=== PATIENT | female | born 1960 | race African-American/Black ===

== ENCOUNTER 2022-11-16 14:06 | Inpatient (IN) | payer MEDICAID ==
[~2022-11-16] VITALS: Ht 167.6 cm; Wt 108.0 kg
[2022-11-16 16:25] LABS: BASOPHILS % 0.2 % (0.0-2.0); EOSINOPHILS % 0.5 % (0.0-5.0); HEMATOCRIT. 37.2 % (36.0-48.0); HEMOGLOBIN. 12.8 g/dL (12.0-16.0); LYMPHOCYTES % 14.2 % (20.0-50.0); MEAN CORPUSCULAR HEMOGLOBIN 32.4 pg (28.0-32.0); MEAN CORPUSCULAR VOLUME 94.5 fL (81.0-99.0); MEAN PLATELET VOLUME 9.3 fl (7.4-10.4); MONOCYTES % 5.5 % (2.0-8.0); NEUTROPHILS % 79.6 % (40.0-76.0); PLATELET 264 x1000/uL (130-400); RED BLOOD CELL COUNT 3.94 mill/uL (4.2-5.4); RED CELL DISTRIBUTION WIDTH 14.7 % (11.6-14.6)
[2022-11-16 16:36] LABS: CHLORIDE 92 mEq/L (98-107)
[2022-11-16 17:08] LABS: PHOSPHORUS 2.7 mg/dL (2.5-4.9)
[2022-11-16 17:09] LABS: CREATINE KINASE 7705 IU/L (26-192); T4 FREE 0.14 ng/dL (0.76-1.46)
[2022-11-16] MEDS ORDERED: LEVOTHYROXINE SODIUM 100MCG TABLET PO ONE (18:30)
[2022-11-16] MEDS ORDERED: ASPIRIN 325MG EC TABLET PO ONE (18:30)
[2022-11-16] MEDS ORDERED: POTASSIUM CHLORIDE 20MEQ TABLET SR PO ONE (18:30)
[2022-11-16] MEDS ORDERED: KCL 20MEQ/100ML PREMIX 100 ML IV ONE (18:30)
[2022-11-16] MEDS ORDERED: SODIUM CHLORIDE 0.9% 1,000 ML IV ONE (20:00)
[2022-11-16] MEDS: MAGNESIUM OXIDE 400MG TABLET PO SCH (20:52)
[2022-11-16] MEDS ORDERED: POTASSIUM CHLORIDE 20MEQ TABLET SR PO NR (21:00)
[2022-11-16 21:05] LABS: CLARITY URINE CLEAR (CLEAR); COLOR URINE YELLOW (YELLOW); KETONES URINE TRACE (NEGATIVE); LEUKOCYTE ESTERASE URINE NEGATIVE (NEGATIVE); NITRITE URINE NEGATIVE (NEGATIVE); OCCULT BLOOD URINE TRACE (NEGATIVE); PH URINE 7.5 (4.5-8.0); PROTEIN URINE NEGATIVE (NEGATIVE); SPECIFIC GRAVITY URINE 1.004 (1.005-1.030)
[2022-11-16] MEDS ORDERED: LORAZEPAM 0.5MG TABLET PO PRN (22:45)
[2022-11-16] MEDS ORDERED: ONDANSETRON HCL 4MG/2ML INJ IV PRN (22:45)
[2022-11-16] MEDS ORDERED: ACETAMINOPHEN 325MG TABLET PO PRN ×2 (22:45)
[2022-11-16] MEDS ORDERED: IPRATROPIUM/ALBUTEROL 0.5-3(2.5)MG/3ML NEB HHN PRN (22:45)
[2022-11-16] MEDS ORDERED: DEXTROSE 50% WATER 50ML SYRINGE IV PRN (22:45)
[2022-11-16] MEDS ORDERED: LISINOPRIL 10MG TABLET PO SCH (22:45)
[2022-11-16] MEDS ORDERED: DOCUSATE SODIUM 100MG CAPSULE PO PRN (22:45)
[2022-11-16] MEDS: CLONIDINE 0.1MG TABLET PO PRN (23:52)
[2022-11-17] MEDS: SODIUM CHLORIDE 0.9% 1,000 ML IV SCH ×2 (00:15→17:46)
[2022-11-17] MEDS ORDERED: ASPIRIN 81MG TABLET PO NR (00:15)
[2022-11-17 03:00] VITALS: BP 156/78
[2022-11-17 03:29] VITALS: BP 156/78
[2022-11-17] MEDS: BLOOD SUGAR DIAGNOSTIC STRIP TEST SCH ×4 (06:40→21:26)
[2022-11-17 07:09] LABS: BASOPHILS % 0.7 % (0.0-2.0); HEMATOCRIT. 29.8 % (36.0-48.0); HEMOGLOBIN. 10.3 g/dL (12.0-16.0); LYMPHOCYTES % 23.7 % (20.0-50.0); MEAN CORPUSCULAR HEMOGLOBIN 32.4 pg (28.0-32.0); MEAN CORPUSCULAR VOLUME 93.8 fL (81.0-99.0); MEAN PLATELET VOLUME 9.4 fl (7.4-10.4); MONOCYTES % 6.6 % (2.0-8.0); PLATELET 233 x1000/uL (130-400); RED BLOOD CELL COUNT 3.17 mill/uL (4.2-5.4); RED CELL DISTRIBUTION WIDTH 14.9 % (11.6-14.6)
[2022-11-17] MEDS: INSULIN LISPRO 100 UNITS/ML SUBCUT SCH ×4 (07:10→21:00)
[2022-11-17 07:14] LABS: CHLORIDE 97 mEq/L (98-107)
[2022-11-17 07:28] LABS: HDL CHOLESTEROL 57 mg/dL (40-59); LDL CHOLESTEROL 256 mg/dL (5-100)
[2022-11-17 08:00] VITALS: BP 156/91
[2022-11-17 08:01] LABS: CREATINE KINASE 6502 IU/L (26-192)
[2022-11-17] MEDS ORDERED: POTASSIUM CHLORIDE 20MEQ TABLET SR PO SCH (08:30)
[2022-11-17] MEDS: LEVOTHYROXINE SODIUM 100MCG TABLET PO SCH (08:48)
[2022-11-17] MEDS: SPIRONOLACTONE 25MG TABLET PO SCH (08:49)
[2022-11-17] MEDS: ASPIRIN 81MG TABLET PO SCH (08:49)
[2022-11-17] MEDS: MAGNESIUM OXIDE 400MG TABLET PO SCH (08:49)
[2022-11-17] MEDS: ENOXAPARIN 30MG/0.3ML SYR SUBCUT SCH ×2 (08:50→21:29)
[2022-11-17] MEDS ORDERED: POTASSIUM CHLORIDE INJ 40 MEQ in DEXT 5% WATER 250 ML IV SCH (10:00)
[2022-11-17 12:00] VITALS: BP 147/74
[2022-11-17 16:00] VITALS: BP 113/44
[2022-11-17] MEDS ORDERED: IPRATROPIUM BROMIDE (0.02%) 0.5MG/2.5ML NEB HHN PRN (16:30)
[2022-11-17] MEDS ORDERED: ALBUTEROL (0.083%) 2.5MG/3ML NEB HHN PRN (16:30)
[2022-11-17 20:00] VITALS: BP 123/62
[2022-11-17] MEDS: FAMOTIDINE 20MG TABLET PO SCH (21:28)
[2022-11-17 22:18] LABS: CHLORIDE 97 mEq/L (98-107)
[2022-11-18] VITALS: BP 121/69
[2022-11-18 06:31] LABS: CHLORIDE 104 mEq/L (98-107)
[2022-11-18] MEDS: INSULIN LISPRO 100 UNITS/ML SUBCUT SCH ×4 (06:45→20:40)
[2022-11-18] MEDS: BLOOD SUGAR DIAGNOSTIC STRIP TEST SCH ×4 (06:45→20:39)
[2022-11-18 06:52] LABS: BASOPHILS % 0.8 % (0.0-2.0); EOSINOPHILS % 2.1 % (0.0-5.0); HEMATOCRIT. 28.9 % (36.0-48.0); HEMOGLOBIN. 10.2 g/dL (12.0-16.0); LYMPHOCYTES % 29.4 % (20.0-50.0); MEAN CORPUSCULAR HEMOGLOBIN 33.2 pg (28.0-32.0); MEAN CORPUSCULAR VOLUME 94.1 fL (81.0-99.0); MEAN PLATELET VOLUME 9.7 fl (7.4-10.4); MONOCYTES % 5.7 % (2.0-8.0); PLATELET 223 x1000/uL (130-400); RED BLOOD CELL COUNT 3.07 mill/uL (4.2-5.4); RED CELL DISTRIBUTION WIDTH 14.9 % (11.6-14.6)
[2022-11-18 08:00] VITALS: BP 140/66
[2022-11-18] MEDS: LEVOTHYROXINE SODIUM 100MCG TABLET PO SCH (08:59)
[2022-11-18] MEDS: ASPIRIN 81MG TABLET PO SCH (09:00)
[2022-11-18] MEDS: ENOXAPARIN 30MG/0.3ML SYR SUBCUT SCH ×2 (09:00→20:39)
[2022-11-18] MEDS: SPIRONOLACTONE 25MG TABLET PO SCH (09:00)
[2022-11-18] MEDS: MAGNESIUM OXIDE 400MG TABLET PO SCH (09:00)
[2022-11-18] MEDS: SODIUM CHLORIDE 0.9% 1,000 ML IV SCH (09:01)
[2022-11-18] MEDS ORDERED: POTASSIUM CHLORIDE INJ 40 MEQ in DEXT 5% WATER 250 ML IV ONE (09:15)
[2022-11-18] MEDS: POTASSIUM CHLORIDE 20MEQ TABLET SR PO SCH (09:36)
[2022-11-18] MEDS: KCL 20MEQ/100ML X 2 FOR TOTAL KCL 40MEQ/200ML IV SCH ×2 (10:56→13:26)
[2022-11-18 12:00] VITALS: BP 129/75
[2022-11-18 16:00] VITALS: BP 150/82
[2022-11-18 20:00] VITALS: BP 136/73
[2022-11-18] MEDS: FAMOTIDINE 20MG TABLET PO SCH (20:39)
[2022-11-19] VITALS: BP 138/76
[2022-11-19] MEDS: SODIUM CHLORIDE 0.9% 1,000 ML IV SCH ×2 (00:10→18:35)
[2022-11-19 04:00] VITALS: BP 140/73
[2022-11-19] MEDS: BLOOD SUGAR DIAGNOSTIC STRIP TEST SCH ×4 (05:57→20:50)
[2022-11-19] MEDS: INSULIN LISPRO 100 UNITS/ML SUBCUT SCH ×4 (05:57→20:50)
[2022-11-19 08:00] VITALS: BP_SYST 156; BP_SYST 159; BP_DIAS 84
[2022-11-19] MEDS: SPIRONOLACTONE 25MG TABLET PO SCH (09:02)
[2022-11-19] MEDS: LEVOTHYROXINE SODIUM 100MCG TABLET PO SCH (09:02)
[2022-11-19] MEDS: POTASSIUM CHLORIDE 20MEQ TABLET SR PO SCH (09:02)
[2022-11-19] MEDS: ASPIRIN 81MG TABLET PO SCH (09:02)
[2022-11-19] MEDS: ENOXAPARIN 30MG/0.3ML SYR SUBCUT SCH ×2 (09:04→20:55)
[2022-11-19] MEDS: CLONIDINE 0.1MG TABLET PO PRN ×2 (09:04→15:39)
[2022-11-19 09:39] LABS: BASOPHILS % 0.8 % (0.0-2.0); EOSINOPHILS % 3.1 % (0.0-5.0); HEMATOCRIT. 31.1 % (36.0-48.0); HEMOGLOBIN. 10.7 g/dL (12.0-16.0); LYMPHOCYTES % 31.5 % (20.0-50.0); MEAN CORPUSCULAR HEMOGLOBIN 32.3 pg (28.0-32.0); MEAN CORPUSCULAR VOLUME 94.1 fL (81.0-99.0); MEAN PLATELET VOLUME 9.7 fl (7.4-10.4); MONOCYTES % 6.3 % (2.0-8.0); NEUTROPHILS % 58.3 % (40.0-76.0); PLATELET 240 x1000/uL (130-400); RED BLOOD CELL COUNT 3.31 mill/uL (4.2-5.4); RED CELL DISTRIBUTION WIDTH 14.9 % (11.6-14.6)
[2022-11-19] MEDS ORDERED: POTASSIUM CHLORIDE INJ 40 MEQ in DEXT 5% WATER 250 ML IV ONE (10:30)
[2022-11-19 12:00] VITALS: BP 156/84
[2022-11-19] MEDS ORDERED: POTASSIUM CHLORIDE 20MEQ TABLET SR PO SCH (12:00)
[2022-11-19] MEDS: AMLODIPINE 5MG TABLET PO SCH (12:41)
[2022-11-19] MEDS: KCL 20MEQ/100ML X 2 FOR TOTAL KCL 40MEQ/200ML IV SCH ×2 (13:47→16:36)
[2022-11-19 16:00] VITALS: BP 177/92
[2022-11-19] MEDS ORDERED: HYDRALAZINE 20MG/ML VIAL IV NR (18:30)
[2022-11-19 20:00] VITALS: BP 140/59
[2022-11-19] MEDS: FAMOTIDINE 20MG TABLET PO SCH (20:54)
[2022-11-19 21:48] LABS: CHLORIDE 102 mEq/L (98-107)
[2022-11-20] VITALS: BP 116/39
[2022-11-20 04:00] VITALS: BP 113/66
[2022-11-20] MEDS: INSULIN LISPRO 100 UNITS/ML SUBCUT SCH ×2 (06:07→11:33)
[2022-11-20] MEDS: BLOOD SUGAR DIAGNOSTIC STRIP TEST SCH ×2 (06:07→11:33)
[2022-11-20 08:00] VITALS: BP 153/77
[2022-11-20] MEDS: ASPIRIN 81MG TABLET PO SCH (09:42)
[2022-11-20] MEDS: SPIRONOLACTONE 25MG TABLET PO SCH (09:42)
[2022-11-20] MEDS: LEVOTHYROXINE SODIUM 100MCG TABLET PO SCH (09:43)
[2022-11-20] MEDS: POTASSIUM CHLORIDE 20MEQ TABLET SR PO SCH (09:43)
[2022-11-20] MEDS: AMLODIPINE 5MG TABLET PO SCH (09:44)
[2022-11-20] MEDS: ENOXAPARIN 30MG/0.3ML SYR SUBCUT SCH (09:45)
[2022-11-20 10:26] LABS: CHLORIDE 105 mEq/L (98-107)
[2022-11-20 10:55] VITALS: BP 142/76
[2022-11-20] MEDS: SODIUM CHLORIDE 0.9% 1,000 ML IV SCH (11:35)
[2022-11-20 12:00] VITALS: BP 174/95
[2022-11-20] MEDS: CLONIDINE 0.1MG TABLET PO PRN (12:06)
[2022-11-20] MEDS ORDERED: AMLODIPINE 5MG TABLET PO NR (13:45)
[2022-11-20] MEDS ORDERED: HYDRALAZINE 20MG/ML VIAL IV NR (14:30)
[2022-11-21] MEDS ORDERED: AMLODIPINE 5MG TABLET PO SCH (09:00)
== END 2022-11-20 15:16 | disposition home health service (06) | DRG 427 ==
LOC: ER 14:06 → MICUSO 20:39 → 7EST 11-17 02:35
PROVIDERS: ADMIT Hospitalist; ATTEND Hospitalist
DX: E03.9 Hypothyroidism, unspecified (principal); I21.4 Non-ST elevation (NSTEMI) myocardial infarction; M62.82 Rhabdomyolysis; E87.6 Hypokalemia; Z20.822 Contact with and (suspected) exposure to COVID-19; E11.9 Type 2 diabetes mellitus without complications; I16.0 Hypertensive urgency; K57.90 Diverticulosis of intestine, part unspecified, without perforation or abscess without bleeding; K80.20 Calculus of gallbladder without cholecystitis without obstruction; K59.00 Constipation, unspecified; R93.89 Abnormal findings on diagnostic imaging of other specified body structures; I10 Essential (primary) hypertension; Z91.14 Patient's other noncompliance with medication regimen; Z79.899 Other long term (current) drug therapy; Z79.4 Long term (current) use of insulin
CPT/HCPCS: 36415; 71045; 74176; 80048; 80053; 80061; 81003; 82533; 82550; 82962; 83036; 83605; 83735; 83880; 84100; 84439; 84443; 84481; 84484; 85025; 87426; 87804; 93005; 93970; 97110; 97116; 97162; 97166; 97530; 99285; C9803; J0360; J1650; J3480; J7030; J7060